=== PATIENT | male | born 1945 | race Caucasian/White ===

== ENCOUNTER 2019-10-25 00:43 | Emergency (ER) | payer MEDICARE, BC ==
[~2019-10-25] VITALS: Ht 177.8 cm; Wt 80.0 kg
--- NOTE | 2019-10-25 01:59 | PHYS DOC ---
General Adult EDM: Chief Complaint: FEVER HPI: HPI: Patient is a 74-year-old male who presents with complaint of fever of 102.2 at home. Patient does admit some mild sore throat but otherwise has been completely asymptomatic. Patient indicates that he is being treated for multiple myeloma and was told by his cancer doctor that he needed to come in and have some blood work because of the fever. Patient denies any cough or short ness of breath. He denies any abdominal pain, nausea or vomiting. He denies any urinary discomfort. [] Review of Systems: Review of Systems: Constitutional: Positive fever HENT: Positive sore throat Respiratory: Denies cough or shortness of breath Cardiovascular: Denies chest pain or edema GI: Denies abdominal pain, nausea, vomiting or diarrhea : Denies dysuria Musculoskeletal: Denies back pain or joint pain Integument: Denies rash Neurologic: Denies headache, focal weakness or sensory changes Heart Score: Risk Factors: Risk Factors: DM, Current or recent (<one month) smoker, HTN, HLP, family history of CAD, obesity. Risk Scores: Score 0 - 3: 2.5% MACE over next 6 weeks - Discharge Home Score 4 - 6: 20.3% MACE over next 6 weeks - Admit for Clinical Observation Score 7 - 10: 72.7% MACE over next 6 weeks - Early Invasive Strategies Physical Exam: PE: Constitutional: Well developed, well nourished, no acute distress, non-toxic appearance. [] HENT: Normocephalic, atraumatic, bilateral external ears normal, pharyngeal erythema without exudates is noted. [] Neck: Normal range of motion, no tenderness, supple, no stridor. [] Cardiovascular: Regular rate and rhythm [] Lungs & Thorax: Bilateral breath sounds clear to auscultation [] Skin: Warm, dry, no erythema, no rash. [] Extremities: No tenderness, no cyanosis, no clubbing, ROM intact. [] Neurologic: Alert and oriented X 3, no focal deficits noted. [] EKG: EKG: [] Radiology/Procedures: Radiology/Procedures: [] Course & Med Decision Making: Course & Med Decision Making Pertinent Labs and Imaging studies reviewed. (See chart for details) [] Dragon Disclaimer: Dragon Disclaimer: This electronic medical record was generated, in whole or in part, using a voice recognition dictation system. Departure Departure: Impression: Primary Impression: Fever Qualified Codes: R50.9 - Fever, unspecified Additional Impression: Yeast UTI Disposition: HOME/RESIDENCE PRIOR TO ADM Condition: STABLE Referrals: WALTER IGNACOI MD (PCP) Patient Instructions: Fever, Urinary Tract Infection Scripts Amoxicillin/Potassium Clav (AUGMENTIN 875-125 TABLET) 1 Each Tablet 1 TAB PO BID for infection for 10 Days, #20 TAB 0 Refills Prov: DANIEL HU Jr. DO 10/25/19 Justification of Admission: Justification of Admission: Justification of Admission Dx: Comment: (Not applicable) DANIEL HU Jr. DO Oct 25, 2019 01:59
[2019-10-25 02:15] LABS: BASO % 1 % (0-3); EOS % 1 % (0-3); HEMATOCRIT 28.7 % (39.0-53.0); HEMOGLOBIN 9.9 g/dL (13.0-17.5); LYMPH # 1.2 x10^3/uL (1.0-4.8); LYMPH % 35 % (24-48); MEAN CORPUSCULAR HEMOGLOBIN 31 pg (25-35); MEAN CORPUSCULAR HGB CONC 35 g/dL (31-37); MEAN CORPUSCULAR VOLUME 91 fL (79-100); MONO # 0.4 x10^3/uL (0.0-1.1); MONO % 12 % (0-9); NEUT # 1.7 x10^3uL (1.8-7.7); NEUT % 51 % (31-73); PLATELET COUNT 120 x10^3/uL (140-400); RED BLOOD COUNT 3.16 x10^6/uL (4.30-5.70); RED CELL DISTRIBUTION WIDTH 16.3 % (11.5-14.5); WHITE BLOOD COUNT 3.3 x10^3/uL (4.0-11.0)
--- NOTE | 2019-10-25 02:22 | RAD ---
EXAM: CHEST 1 VIEW History: Fever COMPARISON: 08/10/2015 TECHNIQUE: Single portable radiograph of the chest FINDINGS: The cardiac silhouette is unremarkable. The lungs are clear bilaterally. The costophrenic sulci are clear and well demarcated. IMPRESSION: No radiographic evidence of an acute cardiopulmonary process. Electronically signed by: Jeremiah Arteaga MD (10/25/2019 2:19 AM) [id number]
[2019-10-25] MEDS ORDERED: AMLO10TA8 PO (02:26)
[2019-10-25] MEDS ORDERED: SILD50TA PO (02:26)
[2019-10-25] MEDS ORDERED: LEVO100T5 PO (02:26)
[2019-10-25] MEDS ORDERED: POTA20TA4 PO (02:26)
[2019-10-25 02:31] LABS: BACTERIA,URINE MOD /HPF (0-FEW); BILIRUBIN,URINE NEG (NEG); CLARITY,URINE CLEAR; COLOR,URINE YELLOW; GLUCOSE,URINE 100 mg/dL (NEG); NITRITE,URINE NEG (NEG); UROBILINOGEN,URINE 0.2 mg/dL (0.2 mg/dL)
[2019-10-25 02:32] LABS: AMORPHOUS SEDIMENT,UR PRESENT /HPF; GRANULAR CASTS,URINE MOD /HPF; YEAST,URINE PRESENT /HPF
[2019-10-25 03:00] VITALS: BP 96/62
[2019-10-25] MEDS ORDERED: AMOX1TAB61 PO (03:00)
[2019-10-25 03:28] LABS: % ATYL 6 % (0-0); % BANDS 11 % (0-9); % LYMPHS 36 % (24-48); % MONOS 7 % (0-10); % SEGS 40 % (35-66)
[2019-10-25 03:29] LABS: ANISOCYTOSIS SLIGHT; HYPOCHROMIA SLIGHT; PLT ESTIMATE DECREASED (ADEQUATE)
[2019-10-25 03:30] LABS: OVALOCYTES OCC; SMUDGE CELLS PRESENT; TOXIC GRANULATION MOD
[2019-10-25] MEDS ORDERED: FLUCONAZOLE 100 MG TABLET. PO ONE (03:30)
[2019-10-25] MEDS ORDERED: AMOXICILLIN/K CLAV 875/125MG TABLET. PO ONE (03:30)
== END 2019-10-25 03:10 | disposition home or self-care (01) ==
LOC: ER 00:43
DX: B37.49 Other urogenital candidiasis (principal); R50.9 Fever, unspecified; Z20.828 Contact with and (suspected) exposure to other viral communicable diseases
CPT/HCPCS: 36415; 71045; 81001; 85007; 85025; 87070; 87086; 87880; 99284; U0003